=== PATIENT | male | born 1960 | race African-American/Black ===

== ENCOUNTER 2016-10-07 10:33 | Emergency (ER) | payer OTHER ==
[~2016-10-07] VITALS: Ht 185.4 cm; Wt 125.2 kg
[2016-10-07 10:51] VITALS: BP 131/87
[2016-10-07 11:19] VITALS: BP 150/89
--- NOTE | 2016-10-07 12:51 | NUR ---
PT PLACED IN OVERFLOW CHAIR 2.
--- NOTE | 2016-10-07 13:12 | NUR ---
Patient being evaluated by Dr. Starkey in overflow chair.
--- NOTE | 2016-10-07 14:30 | NUR ---
PATIENT IS A 56 YO MALE BIB SELF FOR NECK AND BACK PAIN.
[2016-10-07 15:00] VITALS: BP 150/89
--- NOTE | 2016-10-07 15:01 | NUR ---
PATIENT LEFT ER PRIOR TO RECEIVING DISCHRGE INSTRUCTIONS NOT IN LOBBY OR OUTSIDE.
== END 2016-10-07 15:01 | disposition left against medical advice (07) ==
LOC: MED 10:33
DX: Z53.21 Procedure and treatment not carried out due to patient leaving prior to being seen by health care provider (principal)